=== PATIENT | male | born 1965 | race Caucasian/White ===

== ENCOUNTER 2019-12-17 11:30 | Emergency (ER) | payer BC, SELFPAY ==
--- NOTE | ~2019-12-17 | XR_ITS ---
EXAMINATION: XR ankle RT 2V EXAM DATE: 12/17/2019 12:53 INDICATION: Postreduction. TECHNIQUE: Frontal and lateral projections of the right ankle.. Comparison is made to prior examinat ion from earlier same date. FINDINGS: Again there is transverse acute closed posttraumatic fracture through the base of the medi al malleolus, and an oblique right distal fibular metaphyseal fracture into the mortise with about 1 cm lateral subluxation of the talus with respect to tibial plafond and. Posterior dislocation has bee n reduced. Posterior malleolar fracture poorly visualized. Splint has been applied. IMPRESSION: Splinted right ankle trimalleolar fracture dislocation. Reviewed, dictated and finalized at location B.
--- NOTE | ~2019-12-17 | XR_ITS ---
XR ankle RT 2V 12/17/2019 11:43 Indication: Deformity of the right ankle post fall Procedure: 2 views right ankle Comparison: No prior studies for comparison. Findings: There are displaced comminuted trimalleolar fractures. Moderate soft tissue swelling. There are degenerative changes of the hindfoot and midfoot. Impression: 1: Comminuted, displaced trimalleolar fractures. Reviewed, dictated and finalized at location A. Impression: 1: Comminuted, displaced trimalleolar fractures.
[2019-12-17 11:38] VITALS: BP 144/85; PULSE 74; RESP 16; TEMP 36.8; O2SAT 100
[2019-12-17] MEDS: HYDROmorphone HCL INJ (*CRX) 1 MG/ML SYR IV PUSH ×3 (12:31→16:28)
[2019-12-17 12:32] VITALS: BP 132/92; PULSE 72; RESP 16; O2SAT 100
--- NOTE | 2019-12-17 12:41 | ED.LOWEXIN ---
HPI - Extremity Injury (Lower) General Chief Complaint: Extremity Injury, Lower Stated Complaint: right ankle pain Time Seen by Provider: 12/17/19 11:31 History of Present Illness HPI Narrative: Patient is a 54-year-old male who presents the ER with right ankle injury. Patient reports he was in his garden pulling some weeds when he fell backwards and felt a snap in his ankle. Did not lose consciousness. Reports his ankle is deformed and sticking out to the side. He then reached down and attempted to reduce himself with some success. No numbness or tingling. Recently had surgery on his right great toe and just got out of his walking boot. Related Data Home Medications Medication Instructions Recorded Confirmed No Home Medications 08/05/19 08/05/19 Allergies Allergy/AdvReac Type Severity Reaction Status Date / Time No Known Allergies Allergy Verified 12/17/19 11:37 Review of Systems Review of Systems: All systems reviewed & are unremarkable except as noted in HPI and below Musculoskeletal: Musculoskeletal: Reports arthralgias and Reports joint swelling Neurologic: Denies headache(s), Denies focal weakness and Denies numbness PMFSH Past Medical History Medical History (Updated 12/17/19 @ 16:01 by Luke Mcfadden MD) Melanoma 1986, 2001, 2003 Surgical History Surgical History (Updated 12/17/19 @ 15:47 by Luke Mcfadden MD) H/O foot surgery Family History Family History (Updated 08/05/19 @ 16:38 by Ami Ybarra CMA) Father Skin cancer Social History Social History (Updated 08/05/19 @ 16:39 by Ami Ybarra CMA) Smoking status: Never smoker Alcohol intake: current Substance use: never Gender identity (if verbalized by the patient): Male Exam Narrative: Exam Narrative: GENERAL: Well-appearing, well-nourished, and in no acute distress. HEAD: Normocephalic, atraumatic. ENT: Mucous membranes moist. CHEST: Clear to auscultation. No respiratory distress. HEART: Regular rate and rhythm. Normal peripheral pulses.. EXTREMITIES: Focused exam of the right lower extremity reveals tenderness to the medial and lateral malleoli. Splinted by EMS. Dorsalis pedis pulse intact and sensation intact. SKIN: Warm, dry, no rash. NEURO: No focal deficits. Alert and oriented x3. Course Course Emergency Course: Patient informed of results. Orthopedic surgery feels patient would benefit from being at a tertiary care center where he could receive an external fixator due to the severity of the injury. Patient has been accepted by Dr. Salazar in the ER and orthopedic Dr. Dowd made aware. Vital Signs Vital signs: Vital Signs Temperature 98.2 F 12/17/19 11:38 Pulse Rate 74 12/17/19 11:38 Respiratory Rate 16 12/17/19 11:38 Blood Pressure 144/85 H 12/17/19 11:38 Pulse Oximetry 100 12/17/19 11:38 Temperature 98.2 F 12/17/19 11:38 Pulse Rate 62 12/17/19 15:43 Respiratory Rate 17 12/17/19 15:43 Blood Pressure 133/82 12/17/19 15:43 Pulse Oximetry 100 12/17/19 15:43 Procedures Orthopedic Joint Reduction Joint #1: Orthopedic Joint Reduction Date: 12/17/19 Orthopedic Joint Reduction Time: 12:33 Side: right Joint Reduction Location: ankle Analgesia: other (IV dilaudid) Pre-Procedure Neuro Vascular Exam: normal Technique used: direct manipulation Post-reduction neuro exam: intact Post-reduction vascular: intact Post Reduction X-Ray Obtained: Yes Post Reduction X-Ray Results: reduced Splint Applied: Yes Patient Tolerated Procedure: well MDM - Extremity Injury (Lower) Imaging Data Radiologist's impression: ITS Impressions Ankle X-Ray 12/17/19 11:45 Impression: 1: Comminuted, displaced trimalleolar fractures. Ankle X-Ray 12/17/19 12:56 IMPRESSION: Splinted right ankle trimalleolar fracture dislocation. Discharge Plan Discharge Clinica
[2019-12-17 14:12] VITALS: BP 127/85; PULSE 62; RESP 16; O2SAT 98
[2019-12-17 15:18] VITALS: BP 136/92; PULSE 60; RESP 14; O2SAT 100
[2019-12-17 15:43] VITALS: BP 133/82; PULSE 62; RESP 17; O2SAT 100
--- NOTE | 2019-12-17 17:35 | PC.NURSE ---
mack to give pt 1mg Dilaudid ivp before transport to [facility] from dr cortes
== END 2019-12-17 16:29 | disposition short-term general hospital (02) ==
PROVIDERS: Emergency Provider Emergency Medicine; PCP Internal Medicine
DX: S82.851A Displaced trimalleolar fracture of right lower leg, initial encounter for closed fracture (principal); W18.39XA Other fall on same level, initial encounter
CPT/HCPCS: 27818; 73600; 96374; 96376; 99285; J1170